=== PATIENT | female | born 1955 | race Caucasian/White ===

== ENCOUNTER → 2023-08-23 08:52 | Outpatient (REF) | payer MEDICARE, OTHER, SELFPAY ==
[2023-08-23 09:59] LABS: % Basophils 1.4 % (0-2); % Eosinophils 1.9 % (0-6); % Immature Granulocytes 0.2 % (0-0.5); % Lymphocytes 48.1 % (20.5-51.1); % Monocytes 8.8 % (1.7-9.3); % Neutrophils 39.6 % (42.2-75.2); Absolute Basophils 0.1 10^3/uL (0-0.2); Absolute Eosinophils 0.1 10^3/uL (0-0.7); Absolute Monocytes 0.4 10^3/uL (0.1-0.6); Absolute Neutrophils 1.7 10^3/uL (1.4-6.5); Hemoglobin 16.1 g/dL (12.0-16.0); Mean Corp Hgb Conc. 34.3 g/dL (33.0-37.0); Mean Corpuscular Hgb 32.4 pg (27.0-31.0); Mean Corpuscular Volume 94.6 fL (81.0-99.0); Mean Platelet Volume 9.1 fL (7.4-10.4); Nucleated Red Blood Cells % 0 %; Platelet Count 269 10^3/uL (130-400); Red Blood Cell Count 4.97 10^6/uL (4.20-5.40); Red Cell Dist. Width 12.4 % (11.5-14.5); White Blood Cell Count 4.2 10^3/uL (4.8-10.8)
[2023-08-23 10:42] LABS: ALT (SGPT) 26 U/L (0-35); AST (SGOT) 41 U/L (14-36); Albumin 4.3 g/dl (3.5-5.0); Alkaline Phosphatase 82 U/L (38-126); Blood Urea Nitrogen 16 mg/dl (7-17); Calcium 9.5 mg/dl (8.4-10.2); Carbon Dioxide 26 mmol/L (22-30); Chloride 105 mmol/L (98-107); Glucose 99 mg/dl (70-99); HDL Cholesterol 76 mg/dl; LDL Cholesterol, Calculated 135 mg/dl; Potassium 4.4 mmol/L (3.5-5.1); Sodium 136 mmol/L (135-145); Total Bilirubin 1.4 mg/dl (0.2-1.3); Total Cholesterol 241 mg/dl (50-199); Total Protein 6.7 g/dl (6.3-8.2); Triglyceride 152 mg/dl (10-149); Very Low Density Lipoprotein 30 mg/dl (0-30); eGFR > 60.00
== END ==
LOC: HWLAB 08:52
PROVIDERS: ATTENDING PHYSICIAN Nurse Practitioner
DX: I10 Essential (primary) hypertension (principal); E78.2 Mixed hyperlipidemia
CPT/HCPCS: 36415; 80053; 80061; 85025

== ENCOUNTER → 2023-09-07 08:23 | Outpatient (REF) | payer MEDICARE, OTHER, SELFPAY | LOC: HWCARD 08:23 | PROVIDERS: ATTENDING PHYSICIAN Physical Medicine & Rehabilitation; FAMILY PHYSICIAN Nurse Practitioner | DX: Z01.818 Encounter for other preprocedural examination (principal) | CPT/HCPCS: 93005 ==

== ENCOUNTER 2024-03-10 08:15 | Emergency (ER) | payer MEDICARE, OTHER, SELFPAY ==
[2024-03-10 08:18] VITALS: BP 142/95
--- NOTE | 2024-03-10 08:41 | ED.GENMED ---
History of Present Illness
General
Chief Complaint: Back Pain
Source: patient
Time Seen by Provider: 03/10/24 08:22
History of Present Illness
History of Present Illness:
68-year-old female with past medical history of hypertension and chronic back pain presenting to the emergency department for evaluation of left-sided lower back pain that radiates down her left leg that has been ongoing for over 1 year, pain
gradually worsening despite multiple medications. Patient has known L5 left-sided nerve impingement from MRI done last year. Patient has received 5 epidural injections and is scheduled for another injection this coming Monday but notes no
relief. Patient was prescribed prednisone as well as gabapentin but states the gabapentin did not work and the prednisone just upset her stomach. Patient states she has been waking up nightly around 1 AM and significant pain and states she just
cannot take the pain anymore. She notes there is nobody at her back specialist office which is why she decided come to the ER. Denies any new symptoms, no fevers or infectious symptoms, trauma, focal weakness or numbness or any other red flag
symptoms. Patient states she mainly came here just in hopes for some relief of the pain.
Past History
Past History
ED Past Medical History: HTN and Other (migraines, benign tumor R kidney, benign positional vertigo)
ED Past Surgical History: Appendectomy, Cholecystectomy and Other (Thyroid nodule removal)
Social History
Tobacco: Former smoker
Alcohol: None
Drug: None
Personal:
Living: with family
Family History
Family History: Other (n/c)
Review of Systems
Review of Systems
All Other Systems: ROS reviewed and negative except as documented in HPI and ROS
Phy Exam
Physical Exam
Physical Exam:
GENERAL: Alert , in no apparent distress at rest but does appear uncomfortable with movement
EYE: clear conjunctiva b/l
NECK: Supple
ENT: mmm.
BACK: Left paralumbar and sacroiliac tenderness, no midline bony tenderness, no rashes
NEUROLOGICAL: Alert and oriented, no focal neuro deficits. Patellar deep tendon reflexes intact and equal bilaterally, sensation grossly intact and equal to light touch bilateral lower extremities
SKIN: Warm and dry, skin intact.
MUSCULOSKELETAL: No edema, well perfused. EHL intact bilaterally
PSYCH: Normal and appropriate interaction.
Scores
Heart Failure Risk
Heart Failure Risk Score: Not Applicable
Heart Score for Chest Pain Patients
STEMI patient?: Not applicable
Withdrawal Assessment of Alcohol
Withdrawal Assessment Completed?: Not applicable
Course
Orders/Labs/Results
Orders:
Orders
03/10/24 08:41
Hydrocodone 5/APAP 325 [[place] 5/325] 1 tablet PO NOW STA
Ketorolac [Toradol] 30 mg IM NOW STA
Vital Signs
Initial and Last Documented VS:
Initial Vital Signs
Temp Pulse Resp BP Pulse Ox
98.0 F 79 16 142/95 98
03/10/24 08:18 03/10/24 08:18 03/10/24 08:18 03/10/24 08:18 03/10/24 08:18
Last Documented Vital Signs
Temp Pulse Resp BP Pulse Ox
98.0 F 79 16 142/95 98
03/10/24 08:18 03/10/24 08:18 03/10/24 08:18 03/10/24 08:18 03/10/24 08:18
MDM/Problems Addressed
Differential Diagnosis Includes:
Disc herniation, nerve impingement, sciatica, no concern for infectious etiology nor acute spinal cord impingement
MDM/Problems Addressed:
68-year-old female presenting to the emergency department to be evaluated for worsening left paralumbar back pain with radicular symptoms. Patient states that she is hoping mainly for some relief that can get her through to her appointment on
Monday. Patient has already attempted steroid with side effects and does not wish to be on this medication again. She has had multiple muscle relaxants in the past with no relief. Will trial Vicodin. I also offered patient a prescription for
Lyrica but did advise that combining these medications could cause drowsiness. Patient expressed understanding. Will give her a dose of Toradol and Vicodin here. Patient's driving her home. She is aware of return precautions to the ER.
*Pulse Oximetry
Patient hypoxic: no
*Critical Care Note
Total Time (30-74mins, 75-104mins- exclusive of procedures): Not Applicable
Data Reviewed
Review of Other/Old Records Reveals: Records and Radiology Studies
ED Attending Note
-
Portions of this chart may have been created with voice recognition software.� Occasional wrong word or��sound alike� substitutions may have occurred due to the inherent limitations of voice recognition software.
Discharge Plan
Departure
Patient Disposition: Home (Routine Discharge)
Date of Disposition: 03/10/24
Time of Disposition: 08:41
Patient with high blood pressure during this ER visit?: Yes
Discharge Problem:
Left lumbar radiculopathy
Instructions: Sciatica (DC)
Prescriptions:
New
hydrocodone-acetaminophen 5-325 mg tablet
1 tab PO BID PRN (Reason: pain) Qty: 8 0RF
pregabalin 25 mg capsule
25 mg PO DAILY Qty: 30 0RF
No Action
Micardis Hct 40/12.5 Mg Tab
1 tab PO DAILY
oxycodone-acetaminophen 5 MG/325 MG tablet
1 tab PO Q6HPRN PRN (Reason: pain) Qty: 12 0RF
oxycodone-acetaminophen 5 MG/325 MG tablet
1 tab PO Q4HPRN PRN (Reason: pain) Qty: 10 0RF
Paxlovid 300 mg (150 mg x 2)-100 mg tablets,dose pack
See Rx Instructions .ROUTE .COMPLEX Qty: 30 0RF
Rx Instructions:
take TWO 150 mg tablets of nirmatrelvir with ONE 100 mg tablet of ritonavir twice daily for 5 days
prednisone 20 mg tablet
40 mg PO DAILY 4 Days Qty: 8 0RF
tizanidine [Zanaflex] 4 mg capsule
4 mg PO HS PRN (Reason: muscle spasticity) 7 Days Qty: 10 0RF
Discharge Date and Time
Print Language: [place]
[2024-03-10] MEDS: NORCO 5/325 1 TABLET PO (09:08)
[2024-03-10] MEDS: TORADOL 30 MG IM (09:10)
== END 2024-03-10 08:50 | disposition home or self-care (01) ==
LOC: EMR 08:15
PROVIDERS: EMERGENCY PHYSICIAN Emergency Medicine; FAMILY PHYSICIAN Nurse Practitioner
DX: M54.16 Radiculopathy, lumbar region (principal); I10 Essential (primary) hypertension; Z87.891 Personal history of nicotine dependence; Z90.49 Acquired absence of other specified parts of digestive tract
CPT/HCPCS: 99283; 96372